=== PATIENT | male | born 1945 | race Asian ===

== ENCOUNTER 2020-11-23 12:15 | Outpatient (CLI) | payer MEDICARE | END 2020-11-23 23:59 | disposition home or self-care (01) | LOC: RAD 12:15 | PROVIDERS: ATTEND Surgery | DX: S22.32XA Fracture of one rib, left side, initial encounter for closed fracture (principal); J43.9 Emphysema, unspecified; J98.4 Other disorders of lung; X58.XXXA Exposure to other specified factors, initial encounter; Y93.89 Activity, other specified; Y92.89 Other specified places as the place of occurrence of the external cause; Y99.8 Other external cause status | CPT/HCPCS: 71046 ==

== ENCOUNTER → 2021-01-15 | Outpatient (CLI) | payer MEDICARE | END | disposition home or self-care (01) | LOC: CFH 06:49 | PROVIDERS: ATTEND Surgery | DX: S37.092A Other injury of left kidney, initial encounter (principal); N32.89 Other specified disorders of bladder; X58.XXXA Exposure to other specified factors, initial encounter; Y93.89 Activity, other specified; Y92.89 Other specified places as the place of occurrence of the external cause; Y99.8 Other external cause status | CPT/HCPCS: 76770 ==